=== PATIENT | female | born 1970 | race Caucasian/White ===

== ENCOUNTER 2018-08-13 08:15 | Emergency (ER) | payer OTHER ==
[2018-08-13] MEDS: ALPRAZOLAM 0.25 MG TAB PO (09:16)
== END 2018-08-13 09:46 | disposition home or self-care (01) ==
LOC: FTE 08:15
DX: F41.9 Anxiety disorder, unspecified (principal)
CPT/HCPCS: 93005; 99283-25

== ENCOUNTER 2018-12-23 12:10 | Emergency (ER) | payer OTHER ==
[2018-12-23] MEDS: IBUPROFEN 800 MG TAB PO (14:14)
== END 2018-12-23 15:13 | disposition home or self-care (01) ==
LOC: FTE 12:10
DX: M25.562 Pain in left knee (principal)
CPT/HCPCS: 73562; 81025; 99283-25